=== PATIENT | male | born 1960 | race Caucasian/White ===

== ENCOUNTER 2023-05-13 06:45 | Day surgery (SDC) | payer OTHER, SELFPAY ==
[2023-05-13] MEDS: LACTATED RINGERS 1,000 ML 200 ML IV (07:09)
[2023-05-13 07:11] VITALS: BP 115/85; PULSE 78; RESP 18; TEMP 36.3; O2SAT 97; BMI 26.4
--- NOTE | 2023-05-13 07:39 | PM.HP.1 ---
History of Present Illness History of Present Illness Date Patient Seen: 05/13/23 Time Patient Seen: 07:39 Chief complaint: Dx Colonoscopy Narrative: 62-year-old male here for diagnostic colonoscopy for positive fecal immunochemical test. Asymptomatic. No blood per rectum abdominal pain unintentional weight loss PFSH Medical History Hypertension Surgical History S/P VSD repair Family History Father NHL (nodular histiocytic lymphoma) Brother Hypertension Sister Breast cancer Social History marital status: household members: spouse lives independently: Yes occupational status: employed Smoking Status: Never smoker alcohol intake: current substance use type: does not use Meds Home Medications and Allergies Home Medications Medication Instructions Recorded Confirmed Type losartan 100 1 tab PO DAILY 12/27/22 05/13/23 History mg-hydrochlorothiazide 12.5 mg tablet Allergies Allergy/AdvReac Type Severity Reaction Status Date / Time No Known Drug Allergies Allergy Verified 05/13/23 07:09 Exam Vital Signs (past 8 hours): - 05/13/23 07:11 Temperature 97.3 F L Pulse Rate 78 Respiratory Rate 18 Blood Pressure 115/85 Pulse Oximetry 97 Oxygen Delivery Method Room Air Oxygen Delivery Method Room Air Narrative Exam Narrative: General adult man alert oriented no acute distress Assessment & Plan Assessment and plan (1) Positive FIT (fecal immunochemical test): Status: Acute Assessment & Plan narrative: 62-year-old man positive fit here for diagnostic colonoscopy.. Technical details were discussed. Risks, benefits, alternatives explained. Risks including but not limited to myocardial infarction, aspiration, bleeding, pain, missed lesion, incomplete examination, need for further radiographic studies, colonic perforation, and need for major abdominal surgery were discussed. All questions were answered to their satisfaction, and they are in agreement with this plan.
[2023-05-13 08:10] VITALS: BP 98/63; PULSE 68; RESP 12; TEMP 36.1; O2SAT 96
[2023-05-13 08:15] VITALS: BP 100/52; PULSE 83; RESP 14; O2SAT 98
--- NOTE | 2023-05-13 08:15 | PM.OP.COLON ---
Operative Date/Time/Diagnoses Date of procedure: 05/13/23 Time of procedure: 08:15 Pre-op diagnosis: Positive fecal immunochemical test Post-op diagnosis: same Procedure & Clinicians Study performed: Diagnostic Colonoscopy Same procedure as scheduled: Yes Indications: Positive fecal immunochemical test Procedure Notes Procedure in detail: The history and physical was performed/updated and the patient is ASA class is 2. The procedure was discussed in detail with the patient. Potential risks complications including infection, bleeding, missed diagnosis, perforation, need for surgery, and were explained. Their questions were answered and informed consent was obtained. Patient was brought to the procedure room and placed standard monitoring equipment. The patient's vital signs were monitored continuously throughout the entire procedure. Prior to starting time-out was performed. The patient was placed in the left lateral recumbent position. Procedural sedation was administered by anesthesia. Examination began with a thorough inspection of the perianal area there was no evidence of fissures, fistulae, external hemorrhoids or cutaneous malignancy. The colonoscopy scope was then placed into the anal canal and was advanced to the cecum, which was identified by the ileocecal valve, the appendiceal orifice and the confluence of the taenia. The scope was then slowly withdrawn examining colon thoroughly in all directions, irrigating it of any residual stool. Sigmoid colon was notable for moderate diverticulosis. No masses or polyps were identified. There was grade 2 internal hemorrhoids within the rectum on retroflexion. The patient tolerated the procedure well. They will be discharged once criteria are met. The prep was of good/excellent quality. The withdrawl time was 6 minutes. Specimen(s): none sent Impression: Normal colonoscopy Post-procedure Recommendations: Colonoscopy in 10 years Disposition: same day surgery
[2023-05-13 08:20] VITALS: BP 121/78; PULSE 81; RESP 16; TEMP 36.4; O2SAT 96
[2023-05-13 08:34] VITALS: BP 132/82; PULSE 64; RESP 16; TEMP 36.4; O2SAT 100
== END 2023-05-13 08:37 | disposition home or self-care (01) ==
PROVIDERS: PCP Internal Medicine; Referring Provider Surgery; Visit Provider Surgery
PROC: 0DJD8ZZ Inspection of Lower Intestinal Tract, Via Natural or Artificial Opening Endoscopic (ICD-10-PCS; CPT 45378; principal; 2023-05-13 07:45)
DX: R19.5 Other fecal abnormalities (principal); Z12.11 Encounter for screening for malignant neoplasm of colon; K64.1 Second degree hemorrhoids; K57.30 Diverticulosis of large intestine without perforation or abscess without bleeding
CPT/HCPCS: 45378; J2704

== ENCOUNTER 2023-05-21 06:46 | Day surgery (SDC) | payer OTHER, SELFPAY ==
[2023-05-13 14:57] VITALS: BMI 26.8
[2023-05-21] VITALS (8 sets, daily range): BP systolic 125–142; BP diastolic 72–88; PULSE 63–101; RESP 11–16; TEMP 35.8–37; O2SAT 95–98; BMI 26.8
--- NOTE | 2023-05-21 07:11 | SUR.OPER ---
Supine on padded OR bed, head on pillow, arms secured on padded arm boards at <90 degrees abduction, legs uncrossed, safety belt at thigh, tape over blanket over lower legs.
[2023-05-21] MEDS: LACTATED RINGERS 1,000 ML 42 ML IV ×2 (07:14→08:52)
--- NOTE | 2023-05-21 07:43 | PM.HP.1 ---
History of Present Illness History of Present Illness Date Patient Seen: 05/21/23 Time Patient Seen: 07:43 Chief complaint: Open Right Inguinal Hernia Repair Narrative: 62M here for elective right inguinal hernia repair. No interval changes in health. Please refer to the H&P Dec 2022 for further detail. PFSH Medical History (Updated 05/13/23 @ 14:59 by Jillian Weiss RN) Diverticulosis Hypertension Surgical History (Updated 05/13/23 @ 14:59 by Jillian Weiss RN) Hx of colonoscopy (05/13/23) S/P VSD repair Family History Father NHL (nodular histiocytic lymphoma) Brother Hypertension Sister Breast cancer Social History marital status: household members: spouse lives independently: Yes occupational status: employed Smoking Status: Never smoker alcohol intake: current substance use type: does not use Meds Home Medications and Allergies Home Medications Medication Instructions Recorded Confirmed Type losartan 100 1 tab PO DAILY 12/27/22 05/21/23 History mg-hydrochlorothiazide 12.5 mg tablet Allergies Allergy/AdvReac Type Severity Reaction Status Date / Time No Known Drug Allergies Allergy Verified 05/21/23 06:59 Exam Vital Signs (past 8 hours): - 05/21/23 07:02 Temperature 97.2 F L Pulse Rate 101 H Respiratory Rate 16 Blood Pressure 142/85 H Pulse Oximetry 98 Oxygen Delivery Method Room Air Oxygen Delivery Method Room Air Narrative Exam Narrative: Gen-Adult man alert and oriented Abdomen-Right inguinal hernia marked with my initials. Assessment & Plan Assessment and plan (1) Right inguinal hernia: Status: Acute Assessment & Plan narrative: 62M with a symptomatic right inguinal hernia here for elective open repair. Overview of operation again discussed. Operative risks including hemorrhage, infection, reoccurence, damage to surrounding structures, chronic pain reviewed. Written and verbal consent obtained.
[2023-05-21] MEDS: CEFAZOLIN 2 GM/100 ML PREMIX 100 ML IV (07:53)
[2023-05-21] MEDS: BUPIVACAINE 0.25% (PF) VIAL 30 ML INJ (08:13)
--- NOTE | 2023-05-21 09:00 | P.OP_ITS ---
Operative Date/Time/Diagnoses Date of procedure: 05/21/23 Time of procedure: 09:00 Pre-op diagnosis: Right inguinal hernia Post-op diagnosis: same Procedure & Clinicians Procedure: Open repair of right inguinal hernia Same procedure as scheduled: Yes Indications: Large symptomatic partially reducible right inguinal hernia Surgeon: Randell Flores Home Theatre Technician: Ganesh Lew Anesthesia Type: General Operative Notes Findings: Large indirect hernia. No direct floor defect Specimen(s): none sent Estimated Blood Loss (mL): 30 Procedure in detail: The patient was placed supine on the table and bilateral lower extremity compression devices were applied. Anesthesia was induced they were intubated w ith an LMA and received Ancef. A time-out was performed. They were prepped and draped in sterile fashion. The right external inguinal ring and the anterior superior iliac crest were identified and marked. 1 finger breath above the inguinal ligament the skin was infiltrated with 0.25% bupivacaine. The skin incision was made, the subcutaneous tissues were divided with electrocautery exposing the external oblique aponeurosis. There was a large indirect hernia and the external oblique aponeurosis was very attenuated. The external oblique was then opened along the direction of its fibers.. The cord was carefully dissected away from the inguinal canal adjacent to the pubic tubercle. The cord including the vas deferens, testicular bloody supply, were encircled with a Yoseph drain. No direct floor defect was identified. The cremasteric fibers surrounding the cord were divided adjacent to the internal ring. The vas deferens and the testicular vessels were preserved and protected. The cord contents were carefully explored. There was a large indirect hernia which was skeletonized away from the vas deferens and testicular blood supply. The indirect hernia was skeletonized back to the internal ring and reduced spontaneously into the abdomen. Given the large size of the internal ring a plug of mesh was placed into the ring and secured to the adjacent fascia. A 7x 15 cm lightweight Bard Pro Loop hernia mesh was anchored to the insertion of the rectus muscle at the pubic tubercle such that there was approximately 2 cm of tubercle overlap with Ethibond. The inferior edge of the mesh was secured to the shelving edge of the inguinal ligament using Ethibond. Interrupted 3 0 Vicryl suture was used to anchor the superior aspect of the mesh to the conjoined tendon in several places. The tails were then reapproximated loosely around the spermatic cord. The tails of the mesh were then tucked under the external oblique aponeurosis. The repair was checked for hemostasis. The wound was irrigated with sterile saline. The external oblique aponeurosis was reapproximated in a running fashion using 3 0 Vicryl. The subcutaneous tissues were reapproximated with 3 0 Vicryl skin closed with 4 0 Monocryl followed by the application of Dermabond. At the end of the operation I ensured that both testicles were within the scrotum. The sponge instrument count at the end oper ation was correct. The patient emerged from anesthesia was extubated and transferred to the postoperative care unit in stable condition. A total of 30 ml of of 0.25% bupivicaine was used to infiltrate the skin. Complications: none Post-operative Condition: stable Disposition: same day surgery
== END 2023-05-21 10:06 | disposition home or self-care (01) ==
PROVIDERS: PCP Internal Medicine; Referring Provider Surgery; Visit Provider Surgery
PROC: (CPT 49505; principal; 2023-05-21 07:45)
DX: K40.90 Unilateral inguinal hernia, without obstruction or gangrene, not specified as recurrent (principal)
CPT/HCPCS: 49505; J0690; J1100; J1885; J2405; J2704; J3010; J3490